=== PATIENT | female | born 1975 | race Caucasian/White ===

== ENCOUNTER 2019-01-08 07:14 | Day surgery (SDC) | payer BC ==
[2019-01-08] MEDS: MOXIFLOXACIN 0.5% 3 ML OPH OPER (08:20)
[2019-01-08] MEDS ORDERED: BALANCED SALT SOLN 15 ML OPH IRRIG (09:17)
[2019-01-08] MEDS ORDERED: MITOMYCIN 5 MG INJ OP (09:30)
[2019-01-08] MEDS ORDERED: MIDAZOLAM 1 MG/ML 2 ML INJ (09:32)
[2019-01-08] MEDS ORDERED: FENTAnyl 50 MCG/ML VIAL (09:34)
[2019-01-08] MEDS: TOBRAMYCIN/DEXAMETH 3.5 GM OPH OINT (09:55)
[2019-01-08] MEDS: LIDOCAINE 1%/EPI (1:100,000) (MDV) 20 ML (09:55)
[2019-01-08] MEDS: TETRACAINE 0.5% 4 ML OPH (09:55)
[2019-01-08] MEDS ORDERED: PROPOFOL 20 ML (10:03)
[2019-01-08] MEDS ORDERED: LIDOCAINE 2% (SDV) 5 ML INJ (10:03)
[2019-01-08] MEDS ORDERED: hydrALAzine 20 MG INJ IV (10:30)
[2019-01-08] MEDS ORDERED: FENTAnyl 50 MCG/ML VIAL IV ×2 (10:30)
[2019-01-08] MEDS ORDERED: EPHEDrine SULFATE 50 MG/5 ML SYG IV (10:30)
[2019-01-08] MEDS ORDERED: LABETALOL HCL 20MG INJ IV (10:30)
[2019-01-08] MEDS ORDERED: DIPHENHYDRAMINE 50 MG INJ IV (10:30)
[2019-01-08] MEDS ORDERED: OXYCODONE/ACETAMINOPHEN (5/325) TAB PO ×2 (10:30)
[2019-01-08] MEDS ORDERED: ONDANSETRON 4 MG INJ IV (10:30)
== END 2019-01-08 12:35 | disposition home or self-care (01) ==
LOC: SDS 07:14
DX: H11.002 Unspecified pterygium of left eye (principal)
CPT/HCPCS: 65426; 84703